=== PATIENT | female | born 2000 | race Caucasian/White ===

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

== ENCOUNTER → 2021-01-07 | Outpatient (CLI) | payer OTHER, MEDICAID, SELFPAY | END | disposition home or self-care (01) | LOC: LABSPEC 01-08 08:01 | PROVIDERS: Physician Assistant Surgical; Visit Provider Physician Assistant | DX: Z20.822 Contact with and (suspected) exposure to COVID-19 (principal) | CPT/HCPCS: 87635; U0005; U0003 ==

== ENCOUNTER 2021-05-14 16:46 | Outpatient (CLI) | payer OTHER, MEDICAID, SELFPAY | END 2021-05-14 23:59 | disposition short-term general hospital (02) | LOC: IMMUN 05-21 16:46 | PROVIDERS: Visit Provider Family Medicine | DX: Z23 Encounter for immunization (principal) ==